=== PATIENT | female | born 1990 | race Caucasian/White ===

== ENCOUNTER 2019-04-09 22:29 | Emergency (ER) | payer MEDICAID, OTHER ==
[~2019-04-09] VITALS: Ht 167.6 cm; Wt 145.1 kg
--- NOTE | 2019-04-09 22:30 | NUR ---
Dr. Leonardo at bedside for MSE
--- NOTE | 2019-04-09 22:45 | NUR ---
Patient currently on her menstrual cycle. made aware
[2019-04-10] MEDS ORDERED: ONDANSETRON ODT 4 MG TAB.RAPDIS SL ONE (00:45)
[2019-04-10] MEDS ORDERED: IBUPROFEN 800 MG TABLET PO ONE (00:45)
[2019-04-10] MEDS ORDERED: ONDANSETRON ODT 4 MG TAB.RAPDIS ONE (00:48)
[2019-04-10] MEDS ORDERED: IBUPROFEN 800 MG TABLET ONE (00:48)
--- NOTE | 2019-04-10 01:23 | NUR ---
Patient discharged to home in stable conditon. Written and verbal after care instructions given. Patient verbalizes understanding of instructions. Patient ambulating with steady gait
[2019-04-10 01:26] VITALS: BP 112/64
== END 2019-04-10 01:23 | disposition home or self-care (01) ==
LOC: ER 22:31
DX: J02.9 Acute pharyngitis, unspecified (principal); F32.9 Major depressive disorder, single episode, unspecified; F17.200 Nicotine dependence, unspecified, uncomplicated
CPT/HCPCS: 87070; 87400; A4663; Q0162

== ENCOUNTER 2019-04-11 02:42 | Emergency (ER) | payer OTHER ==
[~2019-04-11] VITALS: Ht 167.6 cm; Wt 145.1 kg
[2019-04-11 03:32] LABS: *URINE HCG, QUAL NEGATIVE (NEGATIVE)
[2019-04-11] MEDS ORDERED: VALACYCLOVIR HCL 500 MG TABLET ONE (03:58)
[2019-04-11] MEDS ORDERED: VALACYCLOVIR HCL 500 MG TABLET PO ONE (04:00)
[2019-04-11 04:59] LABS: *MONOTEST NEGATIVE (NEGATIVE)
[2019-04-11] MEDS ORDERED: AZITHROMYCIN 250 MG TABLET ONE (05:18)
[2019-04-11] MEDS ORDERED: CEFTRIAXONE 500 MG VIAL ONE (05:18)
[2019-04-11 05:22] LABS: *BILIRUBIN,URIN NEGATIVE (NEGATIVE); *BLOOD, URINE 3+ (NEGATIVE); *CLARITY,URINE CLOUDY (CLEAR); *COLOR,URINE YELLOW (YELLOW); *KETONES,URINE NEGATIVE (NEGATIVE); *UROBILINOGEN,URINE 0.2 E.U./dl (NORMAL); LEUKOCYTE ESTERASE ,URINE 3+ (NEGATIVE); NITRITE, URINE NEGATIVE (NEGATIVE); UGLUCOSE NEGATIVE (NEGATIVE)
[2019-04-11 05:49] LABS: BACTERIA,URINE MODERATE /HPF (NONE SEEN); RBC,URINE TNTC /HPF (0-3); SQUAMOUS EPITHELIAL CELL,UR MODERATE /HPF (NONE SEEN); WBC,URINE 50-80 /HPF (0-3)
[2019-04-11] MEDS ORDERED: AZITHROMYCIN 250 MG TABLET PO ONE (06:00)
[2019-04-11] MEDS ORDERED: CEFTRIAXONE 500 MG VIAL IM ONE (06:00)
--- NOTE | 2019-04-11 06:09 | NUR ---
pt able to tolerate PO and IM meds as ordered
--- NOTE | 2019-04-11 06:22 | NUR ---
Patient discharged to home in stable conditon. Written and verbal after care instructions given. Patient verbalizes understanding of instructions. ambulatory w/ stable gait all belongings w/ pt
[2019-04-11 06:24] VITALS: BP 106/76
[2019-04-13 09:07] LABS: *GC NAA Negative (Negative); *TRIC.VAG. NAA Negative (Negative)
== END 2019-04-11 06:25 | disposition home or self-care (01) ==
LOC: ER 02:48
DX: A60.00 Herpesviral infection of urogenital system, unspecified (principal); N39.0 Urinary tract infection, site not specified; F32.9 Major depressive disorder, single episode, unspecified; F17.200 Nicotine dependence, unspecified, uncomplicated
CPT/HCPCS: 36415; 81000; 81001; 84703; 86308; 86403; 87070; 87077; 87081; 87086; 87186; 87491; 96372; 99283; J0696; A4663; Q0144